=== PATIENT | female | born 1995 | race Caucasian/White ===

== ENCOUNTER 2017-10-31 19:49 | Emergency (ER) | payer BC, SELFPAY ==
[2017-10-31 19:51] VITALS: BP 117/73; PULSE 80; RESP 16; TEMP 36.5; O2SAT 98; BMI 24.7
--- NOTE | 2017-10-31 20:26 | ED.VISSUMM ---
- ER Visit Summary Date of Service: 10/31/17 Chief Complaint: Itching History of Present Illness: The patient is a 22 F with itching and heat intolerance for the past 3 weeks. The patient is concerned she might have a problem with her thyroid. She was seen at what sounds like an urgent care and started on prednisone and some type of topical remedy, but her symptoms have not improved at all. She never had this before. Denies fever or any other systemic symptoms. Denies rash. Physical Examination: Vitals unremarkable. Afebrile. Nontoxic and in no acute distress. Skin is normal in color without rash or jaundice. Heart regular. Lungs clear. HEENT exam unremarkable. Test Results: We will check basic labs including CBC, CMP, TSH, and hCG. Emergency Department Course and Treatment: Workup was unremarkable except for a TSH of 33. The patient will need an increased dose of Synthroid. I will refer her to her primary doctor for further management of this. There is no indication of an emergent process. She can follow-up as an outpatient. Treatment Plan: As above Disposition: Discharged Impression: 1. Hypothyroidism This note was generated with [employer] dictation software. It may contain incorrect words, spelling, and punctuation that were not noted in review of the chart prior to signing ED Disposition - Plan for ED Patient: Chief Complaint: Itching Referrals: NOT,DEFINED [Primary Care Provider] -
[2017-10-31 20:51] LABS: Absolute Neutrophil Count 3.6 X10^3/uL (2.0-7.7); Basophil# 0.04 X10^3/uL; Basophil% 0.6 % (0-1); Eosinophil# 0.29 X10^3/uL; Eosinophils% 4.2 % (0-5); Hematocrit 40.9 % (37-47); Hemoglobin 13.2 g/dl (12.0-15.0); Lymphocyte % 31.5 % (19-41); Mean Corp Hgb Conc 32.3 g/gl (32-36); Mean Corpuscular Hgb 28.2 pg (27.0-32.0); Mean Corpuscular Volume 87.4 fL (81-99); Mean Platelet Vol. 9.2 fl (6.2-12.0); Monocyte# 0.78 X10^3/uL; Monocyte% 11.2 % (0-10); Neutrophil % 51.5 % (47-70); Platelet Count 357 K/mm3 (150-450); RBC Distribution Width CV 13.5 % (11.6-14.6); RBC Distribution Width SD 42.9 fl (35.1-43.9); Red Blood Count 4.68 M/mm3 (4.2-5.4)
[2017-10-31 20:55] LABS: POSITIVE COUNT NO; POSITIVE DIFFERENTIAL NO; POSITIVE MORPHOLOGY NO
[2017-10-31 21:26] LABS: ALB/GLOB Ratio 0.8 RATIO (0.9-2.4); AST(SGOT) 16 U/L (15-37); Alanine Aminotransfer ALT/SGPT 23 U/L (13-56); Albumin, Serum 3.4 g/dL (3.2-5.0); Alkaline Phosphatase 83 U/L (45-117); Anion Gap 7 (5-15); BUN 15 mg/dL (7-18); BUN/Creat Ratio 19.9 RATIO (10-20); Calcium,Total 8.4 mg/dL (8.5-10.1); Chloride 105 mmol/L (98-107); Creatinine, Serum 0.75 mg/dL (0.55-1.02); EST Glomerular Filtration Rate 103 mL/min (>60); Est Glom Filt Rate - Afr Amer 124 mL/min (>60); Estimated Creatinine Clearance 98.15 ml/min; Globulin 4.4 g/dL (2.2-4.2); Glucose 78 mg/dL (74-106); Potassium 4.1 mmol/L (3.5-5.1); Protein, Total 7.8 g/dL (6.4-8.2); Sodium Level 140 mmol/L (136-145)
[2017-10-31 22:27] LABS: Pregnancy, Serum, hCG Quali. NEGATIVE Negative (0-9 Nonpreg)
--- NOTE | 2017-10-31 22:39 | ED.DEP ---
ED Disposition - Plan for ED Patient: Chief Complaint: Itching Instructions: ED Hypothyroidism Additional Instructions: Follow up with your doctor
[2017-10-31 22:44] VITALS: BP 118/87; PULSE 92; RESP 14; O2SAT 98
== END 2017-10-31 22:45 | disposition home or self-care (01) ==
LOC: ED 20:35
PROVIDERS: Emergency Provider Emergency Medicine
DX: E03.9 Hypothyroidism, unspecified (principal); Z79.899 Other long term (current) drug therapy
CPT/HCPCS: 36415; 80053; 84443; 84703; 85025; 99282